=== PATIENT | female | born 1930 | race African-American/Black ===

== ENCOUNTER 2016-06-07 11:09 | Inpatient (IN) | payer MEDICARE, OTHER ==
[~2016-06-07] VITALS: Ht 157.5 cm; Wt 59.9 kg
[~2016-06-07 11:09] MED LIST: ALLO300T PO; CLON0.2T PO; OMEP20TA63 PO; PRAV40TA PO
--- NOTE | 2016-06-07 11:15 | PHYS DOC ---
Adult General Chief Complaint Chief Complaint: SHORTNESS OF BREATH HPI HPI Patient is a 85 year old female who presents with confusion. According to her daughter started about 2 weeks ago and she was taken to drink care department 3 days ago and told she had a UTI and started on Bactrim. She's been having intermittent confusion and weakness. According to daughter she was on the floor this morning and pain denies any nausea vomiting and knows that she is at [facility] currently. The report from urgent care that shows she has 10-50,000 enterococcus species in her urine. She was seen at urgent care and her O2 sats was 85% on room air there. Upon arrival here she is requiring 3 L of oxygen at this time. Review of Systems Review of Systems Constitutional: Denies fever or chills [] Eyes: Denies change in visual acuity, redness, or eye pain [] HENT: Denies nasal congestion or sore throat [] Respiratory: Denies cough or shortness of breath [] Cardiovascular: No additional information not addressed in HPI [] GI: Denies abdominal pain, nausea, vomiting, bloody stools or diarrhea [] : Denies dysuria or hematuria [] Musculoskeletal: Denies back pain, positive for bilateral hip pain [] Integument: Denies rash or skin lesions [] Neurologic: Denies headache, focal weakness or sensory changes [] Endocrine: Denies polyuria or polydipsia [] Current Medications Current Medications Current Medications Medications (Trade) Dose Ordered Sig/Víctor Start Time Stop Time Status Last Admin Dose Admin Azithromycin (Zithromax 500mg Ivpb For Omni) 250 ml @ 250 mls/hr 1X ONCE 06/07/16 15:00 06/07/16 15:59 Ceftriaxone Sodium 1 gm/ Sodium Chloride 50 ml @ 100 mls/hr Q24H 06/08/16 14:00 Ceftriaxone Sodium 50 ml @ 100 mls/hr 1X ONCE 06/07/16 13:45 06/07/16 14:14 DC Allergies Allergies Allergies Coded Allergies Type Severity Reaction Last Updated Verified No Known Drug Allergies 06/15/15 No Physical Exam Physical Exam Constitutional: Well developed, well nourished, no acute distress, non-toxic appearance. [] HENT: Normocephalic, atraumatic, bilateral external ears normal, oropharynx moist, no oral exudates, nose normal. [] Eyes: PERRLA, EOMI, conjunctiva normal, no discharge. [] Neck: Normal range of motion, no tenderness, supple, no stridor. [] Cardiovascular:Heart rate regular rhythm, no murmur [] Lungs & Thorax: Bilateral breath sounds clear to auscultation [] Abdomen: Bowel sounds normal, soft, no tenderness, no masses, no pulsatile masses. [] Skin: Warm, dry, no erythema, no rash. [] Back: No tenderness, no CVA tenderness no step-offs or midline tenderness noted. [] Extremities: Palpation bilateral hips, no cyanosis, no clubbing, ROM intact, no edema. [] Neurologic: Alert and oriented X 3, normal motor function, normal sensory function, no focal deficits noted. [] Psychologic: Affect normal, judgement normal, mood normal. [] Current Patient Data Vital Signs Vital Signs Date Time Temp Pulse Resp B/P Pulse Ox O2 Delivery O2 Flow Rate FiO2 06/07/16 12:09 68 18 190/96 94 Nasal Cannula 2 06/07/16 11:10 98.7 98.7 Lab Values Laboratory Tests Test 06/07/16 11:30 06/07/16 11:55 Urine Color Yellow Urine Clarity Clear Urine pH 6.0 Urine Specific [place] 1.015 Urine Protein Negativemg/dL (NEG-TRACE) Urine Glucose (UA) Negativemg/dL (NEG) Urine Ketones (Stick) Tracemg/dL (NEG) Urine Blood Negative (NEG) Urine Nitrite Negative (NEG) Urine Bilirubin Negative (NEG) Urine Urobilinogen Dipstick 0.2mg/dL (0.2 mg/dL) Urine Leukocyte Esterase Moderate (NEG) Urine RBC 0/HPF (0-2) Urine WBC 5-10/HPF (0-4) Urine Squamous Epithelial Cells Mod/LPF Urine Bacteria Few/HPF (0-FEW) Urine Hyaline Casts Few/HPF Urine Mucus Slight/LPF Urine Opiates Screen Neg (NEG) Urine Methadone Screen Neg (NEG) Urine Barbiturates Neg (NEG) Urine Phencyclidine Screen Neg (NEG) Urine Amphetamine/Methamphetamine Neg (NEG) Urine Benzodiazepines Screen Neg (NEG) Urine Cocaine Screen Neg (NEG) Urine Cannabinoids Screen Neg (NEG) Urine Ethyl Alcohol Neg (NEG) White Blood Count 6.5x10^3/uL (4.0-11.0) Red Blood Count 4.94x10^6/uL (3.50-5.40) Hemoglobin 14.0g/dL (12.0-15.5) Hematocrit 44.3% (36.0-47.0) Mean Corpuscular Volume 90fL (79-100) Mean Corpuscular Hemoglobin 28pg (25-35) Mean Corpuscular Hemoglobin Concent 32g/dL (31-37) Red Cell Distribution Width 14.6% (11.5-14.5) H Platelet Count 307x10^3/uL (140-400) Neutrophils (%) (Auto) 67% (31-73) Lymphocytes (%) (Auto) 21% (24-48) L Monocytes (%) (Auto) 11% (0-9) H Eosinophils (%) (Auto) 1% (0-3) Basophils (%) (Auto) 1% (0-3) Neutrophils # (Auto) 4.4x10^3uL (1.8-7.7) Lymphocytes # (Auto) 1.4x10^3/uL (1.0-4.8) Monocytes # (Auto) 0.7x10^3/uL (0.0-1.1) Eosinophils # (Auto) 0.0x10^3/uL (0.0-0.7) Basophils # (Auto) 0.0x10^3/uL (0.0-0.2) Platelet Estimate Adequate (ADEQUATE) Large Platelets Few Giant Platelets Occ Prothrombin Time 12.9SEC (11.7-14.0) Prothrombin Time INR 1.0 (0.8-1.1) Sodium Level 140mmol/L (136-145) Potassium Level 4.5mmol/L (3.5-5.1) Chloride Level 102mmol/L (98-107) Carbon Dioxide Level 27mmol/L (21-32) Anion Gap 11 (6-14) Blood Urea Nitrogen 13mg/dL (7-20) Creatinine 1.3mg/dL (0.6-1.0) H Estimated GFR (Cockcroft-Gault) 47.0 Glucose Level 94mg/dL (70-99) Calcium Level 10.9mg/dL (8.5-10.1) H Magnesium Level 1.9mg/dL (1.8-2.4) Total Bilirubin 0.5mg/dL (0.2-1.0) Direct Bilirubin 0.2mg/dL (0.0-0.2) Aspartate Amino Transferase (AST) 22U/L (15-37) Alanine Aminotransferase (ALT) 8U/L (14-59) L Alkaline Phosphatase 76U/L (46-116) Creatine Kinase 192U/L (26-192) Creatine Kinase MB (Mass) 1.4ng/mL (0.0-3.6) Creatine Kinase MB Relative Index 0.7% (0-4) Troponin I Quantitative < 0.017ng/mL (0.000-0.055) FO-Lqw-N-Type Natriuretic Peptide 116pg/mL (0-449) Total Protein 8.3g/dL (6.4-8.2) H Albumin 3.8g/dL (3.4-5.0) Thyroid Stimulating Hormone (TSH) 1.361uIU/mL (0.358-3.74) Laboratory Tests 06/07/16 11:55 Laboratory Tests 06/07/16 11:55 EKG EKG EKG is of poor quality shows a regular rhythm with left axis deviation, no ST elevations appreciated. As interpreted by me. Radiology/Procedures Radiology/Procedures [facility] [address] [place] [address] IMAGING REPORT Signed PATIENT: LETICIA LOU ACCOUNT: [id number] : 1930 LOCATION: ER AGE: 85 SEX: F EXAM STATUS: REG ER ORD. PHYSICIAN: RIC QUAN MD REASON: weakness PROCEDURE: PORTABLE CHEST 1V Indication: Weakness. Technique: AP portable chest radiograph was obtained. No comparison is available. Findings: There is partial obscuring of the left hemidiaphragm with minimal left basilar opacity. The heart is not enlarged and there is no heart failure. Minimal biapical opacity, greater on the right, may represent apical scarring. Comparison to any prior exams would be of benefit. Leads overlie the patient. Impression: Minimal left basilar atelectasis and/or infiltrate. Short-term follow-up would be of benefit, ideally would include PA and lateral views. DICTATED and SIGNED BY: LETTY HAMM MD DATE: 06/07/16 1233 CC: RIC QUAN MD; MARCUS ENCINAS Jr, MD ~ [facility] [address] [place] [address] IMAGING REPORT Signed PATIENT: LETICIA LOU ACCOUNT: [id number] : 1930 LOCATION: ER AGE: 85 SEX: F EXAM STATUS: REG ER ORD. PHYSICIAN: RIC QUAN MD REASON: Bi-lateral hip pain PROCEDURE: HIP BILATERAL WITH PELVIS Indication: Bilateral hip pain. Technique: 2 views of each hip and an AP view the pelvis are submitted for review. Comparison is lumbar spine study from November 06, 2007. Findings: Bony pelvis is intact. Calcification centrally within the pelvis are probably calcified fibroids, were present on prior study. Additional calcifications projecting over the left hip on frontal projections probably were present on the margin of the previous film as well and are stable. There are degenerative changes in the spine, increased from prior. 2 views of the left hip demonstrate no fracture or dislocation. There is minimal spurring. 2 views of the right hip demonstrate no fracture or dislocation. There is minimal spurring. Impression: Negative for pelvic or hip fracture. Mild degenerative changes in both hips. DICTATED and SIGNED BY: LETTY HAMM MD DATE: 06/07/16 1311 CC: RIC QUAN MD; MARCUS ENCINAS Jr, MD ~ Impressions: Pneumonia UTI Confusion Course & Med Decision Making Course & Med Decision Making Pertinent Labs and Imaging studies reviewed. (See chart for details) She has a pneumonia on chest x-ray and she was hypoxic and requiring 3 L of oxygen to keep her O2 sats up. She started Rocephin and azithromycin and being admitted to the hospitalist. Patient and family is agreeable to the plan. Dragon Disclaimer Dragon Disclaimer This electronic medical record was generated, in whole or in part, using a voice recognition dictation system. Departure Departure Referrals: MARCUS ENCINAS Jr, MD (PCP) RIC QUAN MD Jun 07, 2016 11:15
[2016-06-07 11:41] LABS: BILIRUBIN,URINE NEGATIVE (NEG); GLUCOSE,URINE NEGATIVE (NEG); NITRITE,URINE NEGATIVE (NEG); PROTEIN,URINE NEGATIVE (NEG-TRACE); UROBILINOGEN,URINE 0.2 mg/dL (0.2 mg/dL)
[2016-06-07 11:46] LABS: BARBITURATES NEG (NEG); BENZODIAZEPINES NEG (NEG); CANNABINOIDS NEG (NEG); COCAINE NEG (NEG); METHADONE NEG (NEG); OPIATES NEG (NEG); PHENCYCLIDINE NEG (NEG)
[2016-06-07 11:47] LABS: ETHANOL, URINE NEG (NEG)
[2016-06-07 11:55] LABS: BACTERIA,URINE FEW /HPF (0-FEW); RBC,URINE 0 /HPF (0-2); SQUAMOUS EPITHELIAL CELL,UR MOD /LPF
[2016-06-07 12:13] LABS: CALCIUM 10.9 mg/dL (8.5-10.1); CREATININE 1.3 mg/dL (0.6-1.0); POTASSIUM 4.5 mmol/L (3.5-5.1)
[2016-06-07 12:19] LABS: ALBUMIN 3.8 g/dL (3.4-5.0); DIRECT BILIRUBIN 0.2 mg/dL (0.0-0.2); MAGNESIUM 1.9 mg/dL (1.8-2.4); TOTAL BILIRUBIN 0.5 mg/dL (0.2-1.0); TOTAL PROTEIN 8.3 g/dL (6.4-8.2)
[2016-06-07 12:24] LABS: PROTHROMBIN TIME PATIENT 12.9 SEC (11.7-14.0)
[2016-06-07 12:30] LABS: BASO % 1 % (0-3); EOS % 1 % (0-3); HEMATOCRIT 44.3 % (36.0-47.0); LYMPH # 1.4 x10^3/uL (1.0-4.8); LYMPH % 21 % (24-48); MEAN CORPUSCULAR HEMOGLOBIN 28 pg (25-35); MEAN CORPUSCULAR HGB CONC 32 g/dL (31-37); MEAN CORPUSCULAR VOLUME 90 fL (79-100); MONO % 11 % (0-9); NEUT % 67 % (31-73); PLATELET COUNT 307 x10^3/uL (140-400); RED BLOOD COUNT 4.94 x10^6/uL (3.50-5.40); RED CELL DISTRIBUTION WIDTH 14.6 % (11.5-14.5); WHITE BLOOD COUNT 6.5 x10^3/uL (4.0-11.0)
[2016-06-07 12:32] LABS: CKMB INDEX 0.7 % (0-4); CKMB MASS 1.4 ng/mL (0.0-3.6)
--- NOTE | 2016-06-07 12:37 | RAD ---
Indication: Weakness. Technique: AP portable chest radiograph was obtained. No comparison is available. Findings: There is partial obscuring of the left hemidiaphragm with minimal left basilar opacity. The heart is not enlarged and there is no heart failure. Minimal biapical opacity, greater on the right, may represent apical scarring. Comparison to any prior exams would be of benefit. Leads overlie the patient. Impression: Minimal left basilar atelectasis and/or infiltrate. Short-term follow-up would be of benefit, ideally would include PA and lateral views.
[2016-06-07 13:17] LABS: PLT ESTIMATE ADEQUATE (ADEQUATE)
--- NOTE | 2016-06-07 13:17 | RAD ---
Indication: Bilateral hip pain. Technique: 2 views of each hip and an AP view the pelvis are submitted for review. Comparison is lumbar spine study from November 06, 2007. Findings: Bony pelvis is intact. Calcification centrally within the pelvis are probably calcified fibroids, were present on prior study. Additional calcifications projecting over the left hip on frontal projections probably were present on the margin of the previous film as well and are stable. There are degenerative changes in the spine, increased from prior. 2 views of the left hip demonstrate no fracture or dislocation. There is minimal spurring. 2 views of the right hip demonstrate no fracture or dislocation. There is minimal spurring. Impression: Negative for pelvic or hip fracture. Mild degenerative changes in both hips.
[2016-06-07] MEDS ORDERED: CEFTRIAXONE 1GM IVPB FOR OMNI 50 ML IV ONE (13:45)
[2016-06-07] MEDS ORDERED: AZITHRMYCN 500MG IVPB FOR OMNI 250 ML IV ONE (15:00)
--- NOTE | 2016-06-07 15:19 | EKG ---
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
[2016-06-07 16:00] VITALS: BP 200/84
[2016-06-07 16:08] VITALS: BP 200/84
--- NOTE | 2016-06-07 16:11 | ACF ---
Admission Forms Criteria PNEUMONIA, COMMUNITY ACQUIRED Clinical Indications for Admission to Inpatient Care ( Place 'X' for any and all applicable criteria): Admission is indicated for ANY ONE of the following (1)(2)(3): [ ]I. Hypoxemia indicated by ANY ONE of the following: [ ]a) Oxygen saturation less than 90% while breathing room air [ ]b) PO2 less than 60 mm Hg (8.0 kPa) while breathing room air [ ]c) Chronic lung disease with significant deterioration from baseline oxygenation [X]II. Appropriate diagnostic testing and treatment unavailable in outpatient or recovery facility (eg,testing or infection control measures unavailable(10) [ ]III. Moderate-risk or high-risk category patients (Pneumonia Severity Index (PSI) class IV or V, or CURB-65 score of 3 or greater). [ ]IV. Outpatient treatment failure as indicated by ANY ONE of the following(9) : [ ]a) Failure to respond to antibiotic (eg, resistant organism) [ ]b) Clinically significant adverse effects from medication (eg, vomiting) [ ]c) Complications of pneumonia (eg, empyema, bacteremia) [ ]d) Significant worsening of comorbid cond necessitating inpatient care (eg, chronic heart failure) [ ]V. Intermediate-risk category patients (eg, PSI class III or CURB-65 score 2) who do not improve with initial therapy and observation. [ ]. Immunocompromised patients (eg, AIDS, chronic steroid use) at moderate or high risk based on clinical evaluation. [ ]VII. Complicated pleural effusions (eg, exudative, loculated) [ ]VIII.Hemodynamic instability [ ] IX. Altered mental status that is severe or persistent. [ ]X. Dehydration that is severe or persistent. [ ]XI. Bacteremia [ ]XII. Respiratory finding (eg. tachypnea) that do not respond to outpatient or observation care treatment Extended stay beyond goal length of stay may be needed for (20) [ ]a) Unclear diagnosis [ ]b) Pleural disease [ ]c) Severe pneumonia or treatment failure (25 [ ]d) Respiratory failure (anticipate invasive or noninvasive ventilatory support) [ ]e) Abnormal serum electrolytes (serum Na concentration less than 135 mEq/L (mmol/L) (32)(33) [ ]f) Clinically significant comorbid illness (eg, heart failure, atrial fibrillation with rapid heart rate, alcohol withdrawal, renal insufficiency)(34)(35) [ ]g) Comorbid acute exacerbation of COPD(36) [ ]h) Concomitant diagnosis of malignancy that may be associated with malnutrition, immunologic impairment, or bronchial obstruction. [ ]i) Concomitant altered mental status [ ]j) Culture-identified Gram-negative or antibiotic-resistant organism (eg, Pseudomonas, methicillin-resistant Staphylococcus aureus)(30) [ ]k) Healthcare-associated pneumonia The original [facility] content created by [employer] has been revised. The portions of the content which have been revised are identified through the use of italic text or in bold, and [facility] has neither reviewed nor approved the modified material. All other unmodified content is copyright [facility]. Please see references footnoted in the original [facility] [employer] edition 2016 Admission Criteria Met?: Yes ALEM WRIGHT Jun 07, 2016 16:11
[2016-06-07] MEDS: CLONIDINE HCL 0.2 MG TABLET PO SCH (17:28)
[2016-06-07 19:00] VITALS: BP 147/78
[2016-06-07] MEDS ORDERED: CLONIDINE HCL 0.2 MG TABLET PO SCH (21:00)
[2016-06-07] MEDS: ATORVASTATIN CALCIUM 20 MG TABLET PO SCH (21:02)
[2016-06-07 23:00] VITALS: BP 136/87
--- NOTE | 2016-06-08 01:49 | HP ---
ADMIT DATE: 06/07/2016 CHIEF COMPLAINT: Status post fall, pneumonia. HISTORY OF PRESENT ILLNESS: The patient is an 85-year-old -[place] woman with past medical history of gout and hypertension who presented to the Emergency Room on the urging of her daughter after she was found down in her home. The patient related that she had fallen and was just unable to get up. She denies any loss of consciousness, but admits to weakness. She had been told that she had a UTI and had been started on Bactrim several days ago. In the Emergency Room, she was found to be hypoxic with a pulse ox of 85 prompting starting of supplemental oxygenation as well and chest x-ray which was positive for minimal left basilar atelectasis and/or infiltrate. A posttraumatic x-ray of both hips did not reveal any fractures. Minimal spurring was noted in both joints. A urinalysis was once again obtained and showed a few bacteria and 5-10 WBC. The patient was therefore admitted with suspicion for pneumonia as well as possibly persistent UTI. PAST MEDICAL HISTORY: Hypertension, gout, history of syncope, but worked up by Cardiology with Holter monitor and negative workup. FAMILY HISTORY: Essentially negative, longevity on both sides of her family. SOCIAL HISTORY: Lives by herself, never smoked. No toxic habits. ALLERGIES: No known drug allergies. MEDICATIONS: MAR reconciled with home medications. REVIEW OF SYSTEMS: The patient denies any shortness of breath, chest pain or other symptoms. Rest of organ system review was completely negative. PHYSICAL EXAMINATION: VITAL SIGNS: Show a blood pressure of 200/84, heart rate of 76, respiratory rate of 16. She is afebrile. GENERAL: This is an 85-year-old frail -[place] woman, alert and oriented, in no acute distress, very pleasant. HEENT: Shows no scleral icterus. NECK: Supple, without any lymphadenopathy. LUNGS: Clear to auscultation bilaterally. HEART: Regular rate and rhythm. ABDOMEN: Has positive bowel sounds, soft, nontender. EXTREMITIES: Show no edema. There is a large bruise over her left upper extremity, apparently where daughter picked her up off the floor. LABORATORY DATA: CBC with a WBC of 6.5, hemoglobin 14.0, platelets of 307. Chemistries with BUN and creatinine of 13 and 1.3, normal electrolytes, normal LFTs. Troponin is negative. Total protein at 8.3 with an albumin of 6.8, TSH 1.3. UA with 5-10 WBCs, few bacteria. PT, PTT is within normal limits. Chest x-ray and hip films as above. ASSESSMENT AND PLAN: The patient is an 85-year-old -[place] woman, status post fall, found with a possible pneumonia. We will obtain noncontrast CT to elucidate. She is asymptomatic with her hypoxia. We will monitor. 1. History of UTI, previously treated with Bactrim. Await urine culture. We will treat empirically with ceftriaxone for both pneumonia and possible UTI. 2. The patient does have a history of gout without any acute exacerbation. We will decrease her home allopurinol to 100 mg given her significant CKD. 3. CKD with a creatinine of 1.3 at her age and low muscle mass is consistent with CKD stage 4. We will monitor closely. 4. Prophylaxis. Will be started with an H2 chidi. Will use SCDs for DVT prophylaxis. SEJAL BOOKER MD DR: UR/nts JOB#: [id number] / [id number] MARCUS Arellano MD [facility]
[2016-06-08 03:00] VITALS: BP 157/74
[2016-06-08 06:05] LABS: BASO # 0.1 x10^3/uL (0.0-0.2); BASO % 1 % (0-3); EOS % 2 % (0-3); HEMATOCRIT 39.1 % (36.0-47.0); HEMOGLOBIN 12.7 g/dL (12.0-15.5); LYMPH # 1.8 x10^3/uL (1.0-4.8); LYMPH % 30 % (24-48); MEAN CORPUSCULAR HEMOGLOBIN 29 pg (25-35); MEAN CORPUSCULAR HGB CONC 33 g/dL (31-37); MEAN CORPUSCULAR VOLUME 88 fL (79-100); MONO % 12 % (0-9); NEUT % 55 % (31-73); PLATELET COUNT 272 x10^3/uL (140-400); RED BLOOD COUNT 4.46 x10^6/uL (3.50-5.40); RED CELL DISTRIBUTION WIDTH 14.7 % (11.5-14.5)
[2016-06-08 06:48] LABS: CREATININE 1.3 mg/dL (0.6-1.0); POTASSIUM 4.9 mmol/L (3.5-5.1)
[2016-06-08] MEDS ORDERED: DEXTROSE 50% 25 GM / 50ML DISP.SYRIN. IV ONE (06:53)
[2016-06-08 07:08] VITALS: BP 147/74
[2016-06-08] MEDS: ALLOPURINOL 100 MG TABLET. PO SCH (09:27)
[2016-06-08] MEDS: CLONIDINE HCL 0.2 MG TABLET PO SCH ×2 (09:27→20:20)
[2016-06-08] MEDS: PANTOPRAZOLE 40 MG TABLET. PO SCH (09:28)
[2016-06-08 10:50] VITALS: BP 102/60
[2016-06-08] MEDS ORDERED: CEFTRIAXONE SODIUM 1 GM in IV NORMAL SALINE 50ML 50 ML IV SCH (14:00)
--- NOTE | 2016-06-08 14:21 | PDOC ---
PROGRESS NOTES Chief Complaint Chief Complaint Hypoxia s/p fall ASSESSMENT AND PLAN: 1. Weakness: s/p fall. prob 2/2 infect. OT PT eval 2. Hypoxia: CT w/o evidence of infiltrate. mild opacities c/w fibrosis 3. recent UTI: finished Abx regimen. UA in ER with bacteria, but cult NGTD. empiric ceftriax. stop in AM if remains asympt 4. gout: on renally dosed allopurinol 5. CKD4: stable 6. Hypoglycemia: noted this AM. responded to OJ/Glu. no hx DM or diabetic meds. monitor. 7. Prophylaxis: H2B. SCDs for DVT Vitals Vitals Vital Signs Date Time Temp Pulse Resp B/P Pulse Ox O2 Delivery O2 Flow Rate FiO2 06/08/16 10:50 96.4 62 20 102/60 97 Nasal Cannula 2.0 96.4 Physical Exam General: Alert, Oriented X3, Cooperative Heart: Regular rate Lungs: Clear Abdomen: Normal bowel sounds, Soft, No tenderness Extremities: No edema Skin: No rashes Labs LABS Laboratory Tests Test 06/07/16 20:45 06/08/16 05:00 06/08/16 07:06 Troponin I Quantitative < 0.017ng/mL (0.000-0.055) < 0.017ng/mL (0.000-0.055) White Blood Count 6.0x10^3/uL (4.0-11.0) Red Blood Count 4.46x10^6/uL (3.50-5.40) Hemoglobin 12.7g/dL (12.0-15.5) Hematocrit 39.1% (36.0-47.0) Mean Corpuscular Volume 88fL (79-100) Mean Corpuscular Hemoglobin 29pg (25-35) Mean Corpuscular Hemoglobin Concent 33g/dL (31-37) Red Cell Distribution Width 14.7% (11.5-14.5) Platelet Count 272x10^3/uL (140-400) Neutrophils (%) (Auto) 55% (31-73) Lymphocytes (%) (Auto) 30% (24-48) Monocytes (%) (Auto) 12% (0-9) Eosinophils (%) (Auto) 2% (0-3) Basophils (%) (Auto) 1% (0-3) Neutrophils # (Auto) 3.3x10^3uL (1.8-7.7) Lymphocytes # (Auto) 1.8x10^3/uL (1.0-4.8) Monocytes # (Auto) 0.7x10^3/uL (0.0-1.1) Eosinophils # (Auto) 0.1x10^3/uL (0.0-0.7) Basophils # (Auto) 0.1x10^3/uL (0.0-0.2) Sodium Level 141mmol/L (136-145) Potassium Level 4.9mmol/L (3.5-5.1) Chloride Level 105mmol/L (98-107) Carbon Dioxide Level 26mmol/L (21-32) Anion Gap 10 (6-14) Blood Urea Nitrogen 15mg/dL (7-20) Creatinine 1.3mg/dL (0.6-1.0) Estimated GFR (Cockcroft-Gault) 47.0 Glucose Level 40mg/dL (70-99) Calcium Level 10.0mg/dL (8.5-10.1) Glucose (Fingerstick) 101mg/dL (70-99) Review of Systems Review of Systems feels great, no c/o Comment Review of Relevant I have reviewed the following items mady (where applicable) has been applied. Labs Laboratory Tests Test 06/07/16 11:30 06/07/16 11:55 06/07/16 20:45 06/08/16 05:00 Urine Color Yellow Urine Clarity Clear Urine pH 6.0 Urine Specific [place] 1.015 Urine Protein Negativemg/dL (NEG-TRACE) Urine Glucose (UA) Negativemg/dL (NEG) Urine Ketones (Stick) Tracemg/dL (NEG) Urine Blood Negative (NEG) Urine Nitrite Negative (NEG) Urine Bilirubin Negative (NEG) Urine Urobilinogen Dipstick 0.2mg/dL (0.2 mg/dL) Urine Leukocyte Esterase Moderate (NEG) Urine RBC 0/HPF (0-2) Urine WBC 5-10/HPF (0-4) Urine Squamous Epithelial Cells Mod/LPF Urine Bacteria Few/HPF (0-FEW) Urine Hyaline Casts Few/HPF Urine Mucus Slight/LPF Urine Opiates Screen Neg (NEG) Urine Methadone Screen Neg (NEG) Urine Barbiturates Neg (NEG) Urine Phencyclidine Screen Neg (NEG) Urine Amphetamine/Methamphetamine Neg (NEG) Urine Benzodiazepines Screen Neg (NEG) Urine Cocaine Screen Neg (NEG) Urine Cannabinoids Screen Neg (NEG) Urine Ethyl Alcohol Neg (NEG) White Blood Count 6.5x10^3/uL (4.0-11.0) 6.0x10^3/uL (4.0-11.0) Red Blood Count 4.94x10^6/uL (3.50-5.40) 4.46x10^6/uL (3.50-5.40) Hemoglobin 14.0g/dL (12.0-15.5) 12.7g/dL (12.0-15.5) Hematocrit 44.3% (36.0-47.0) 39.1% (36.0-47.0) Mean Corpuscular Volume 90fL (79-100) 88fL (79-100) Mean Corpuscular Hemoglobin 28pg (25-35) 29pg (25-35) Mean Corpuscular Hemoglobin Concent 32g/dL (31-37) 33g/dL (31-37) Red Cell Distribution Width 14.6% (11.5-14.5) 14.7% (11.5-14.5) Platelet Count 307x10^3/uL (140-400) 272x10^3/uL (140-400) Neutrophils (%) (Auto) 67% (31-73) 55% (31-73) Lymphocytes (%) (Auto) 21% (24-48) 30% (24-48) Monocytes (%) (Auto) 11% (0-9) 12% (0-9) Eosinophils (%) (Auto) 1% (0-3) 2% (0-3) Basophils (%) (Auto) 1% (0-3) 1% (0-3) Neutrophils # (Auto) 4.4x10^3uL (1.8-7.7) 3.3x10^3uL (1.8-7.7) Lymphocytes # (Auto) 1.4x10^3/uL (1.0-4.8) 1.8x10^3/uL (1.0-4.8) Monocytes # (Auto) 0.7x10^3/uL (0.0-1.1) 0.7x10^3/uL (0.0-1.1) Eosinophils # (Auto) 0.0x10^3/uL (0.0-0.7) 0.1x10^3/uL (0.0-0.7) Basophils # (Auto) 0.0x10^3/uL (0.0-0.2) 0.1x10^3/uL (0.0-0.2) Platelet Estimate Adequate (ADEQUATE) Large Platelets Few Giant Platelets Occ Prothrombin Time 12.9SEC (11.7-14.0) Prothromb Time International Ratio 1.0 (0.8-1.1) Sodium Level 140mmol/L (136-145) 141mmol/L (136-145) Potassium Level 4.5mmol/L (3.5-5.1) 4.9mmol/L (3.5-5.1) Chloride Level 102mmol/L (98-107) 105mmol/L (98-107) Carbon Dioxide Level 27mmol/L (21-32) 26mmol/L (21-32) Anion Gap 11 (6-14) 10 (6-14) Blood Urea Nitrogen 13mg/dL (7-20) 15mg/dL (7-20) Creatinine 1.3mg/dL (0.6-1.0) 1.3mg/dL (0.6-1.0) Estimated GFR (Cockcroft-Gault) 47.0 47.0 Glucose Level 94mg/dL (70-99) 40mg/dL (70-99) Calcium Level 10.9mg/dL (8.5-10.1) 10.0mg/dL (8.5-10.1) Magnesium Level 1.9mg/dL (1.8-2.4) Total Bilirubin 0.5mg/dL (0.2-1.0) Direct Bilirubin 0.2mg/dL (0.0-0.2) Aspartate Amino Transf (AST/SGOT) 22U/L (15-37) Alanine Aminotransferase (ALT/SGPT) 8U/L (14-59) Alkaline Phosphatase 76U/L (46-116) Creatine Kinase 192U/L (26-192) Creatine Kinase MB (Mass) 1.4ng/mL (0.0-3.6) Creatine Kinase MB Relative Index 0.7% (0-4) Troponin I Quantitative < 0.017ng/mL (0.000-0.055) < 0.017ng/mL (0.000-0.055) < 0.017ng/mL (0.000-0.055) RQ-Oix-S-Type Natriuretic Peptide 116pg/mL (0-449) Total Protein 8.3g/dL (6.4-8.2) Albumin 3.8g/dL (3.4-5.0) Thyroid Stimulating Hormone (TSH) 1.361uIU/mL (0.358-3.74) Test 06/08/16 07:06 Glucose (Fingerstick) 101mg/dL (70-99) Laboratory Tests Test 06/07/16 20:45 06/08/16 05:00 06/08/16 07:06 Troponin I Quantitative < 0.017ng/mL (0.000-0.055) < 0.017ng/mL (0.000-0.055) White Blood Count 6.0x10^3/uL (4.0-11.0) Red Blood Count 4.46x10^6/uL (3.50-5.40) Hemoglobin 12.7g/dL (12.0-15.5) Hematocrit 39.1% (36.0-47.0) Mean Corpuscular Volume 88fL (79-100) Mean Corpuscular Hemoglobin 29pg (25-35) Mean Corpuscular Hemoglobin Concent 33g/dL (31-37) Red Cell Distribution Width 14.7% (11.5-14.5) Platelet Count 272x10^3/uL (140-400) Neutrophils (%) (Auto) 55% (31-73) Lymphocytes (%) (Auto) 30% (24-48) Monocytes (%) (Auto) 12% (0-9) Eosinophils (%) (Auto) 2% (0-3) Basophils (%) (Auto) 1% (0-3) Neutrophils # (Auto) 3.3x10^3uL (1.8-7.7) Lymphocytes # (Auto) 1.8x10^3/uL (1.0-4.8) Monocytes # (Auto) 0.7x10^3/uL (0.0-1.1) Eosinophils # (Auto) 0.1x10^3/uL (0.0-0.7) Basophils # (Auto) 0.1x10^3/uL (0.0-0.2) Sodium Level 141mmol/L (136-145) Potassium Level 4.9mmol/L (3.5-5.1) Chloride Level 105mmol/L (98-107) Carbon Dioxide Level 26mmol/L (21-32) Anion Gap 10 (6-14) Blood Urea Nitrogen 15mg/dL (7-20) Creatinine 1.3mg/dL (0.6-1.0) Estimated GFR (Cockcroft-Gault) 47.0 Glucose Level 40mg/dL (70-99) Calcium Level 10.0mg/dL (8.5-10.1) Glucose (Fingerstick) 101mg/dL (70-99) Medications Current Medications Ceftriaxone Sodium 1 gm/ Sodium Chloride 50 ml @ 100 mls/hr Q24H IV ; Start 06/08/16 at 14:00 Ceftriaxone Sodium 50 ml @ 100 mls/hr 1X ONCE IV Last administered on 15:31; Start 06/07/16 at 13:45; Stop 06/07/16 at 14:14; Status DC Azithromycin (Zithromax 500mg Ivpb For Omni) 250 ml @ 250 mls/hr 1X ONCE IV Last administered on 06/07/16 16:59; Start 06/07/16 at 15:00; Stop 06/07/16 at 15: 59; Status DC Clonidine HCl (Catapres) 0.2 mg BID PO ; Start 06/07/16 at 21:00; Stop 06/07/16 at 21:00; Status DC Clonidine HCl (Catapres) 0.2 mg BID PO Last administered on 06/08/16 09:27; Start 06/07/16 at 17:30 Allopurinol (Zyloprim) 100 mg DAILY PO Last administered on 06/08/16 09:27; Start 06/08/16 at 09:00 Pantoprazole Sodium (Protonix) 40 mg DAILYAC PO Last administered on 06/08/16 09:28; Start 06/08/16 at 07:30 Atorvastatin Calcium (Lipitor) 20 mg QHS PO Last administered on 06/07/16 21:02 ; Start 06/07/16 at 21:00 Dextrose 25 gm STK-MED ONCE IV Last administered on 06/08/16 06:53; Start at 06:53; Stop 06/08/16 at 06:54; Status DC Active Scripts Active Reported Prilosec Otc (Omeprazole Magnesium) 20 Mg Tablet.dr 1 Tab PO DAILY Allopurinol 300 Mg Tablet 300 Mg PO DAILY Pravachol (Pravastatin Sodium) 40 Mg Tablet 40 Mg PO DAILY Clonidine Hcl 0.2 Mg Tablet 0.2 Mg PO BID Vitals/I & O Vital Sign - Last 24 Hours 06/07/16 06/07/16 06/07/16 06/07/16 14:30 15:00 16:00 16:08 Temp 98.2 98.2 98.2 98.2 Pulse 80 72 76 76 Resp 20 18 16 16 B/P 182/96 184/92 200/84 200/84 Pulse Ox 94 93 100 100 O2 Delivery Nasal Cannula Nasal Cannula Nasal Cannula Nasal Cannula O2 Flow Rate 2 2 2.0 2.0 06/07/16 06/07/16 06/07/16 06/07/16 17:28 17:37 19:00 20:00 Temp 101.8 101.8 Pulse 76 90 Resp 17 B/P 200/84 147/78 Pulse Ox 99 O2 Delivery Room Air Nasal Cannula Room Air O2 Flow Rate 2.0 06/07/16 06/07/16 06/08/16 06/08/16 21:28 23:00 03:00 07:08 Temp 99.0 97.5 96.4 97.5 99.0 97.5 96.4 97.5 Pulse 68 63 63 Resp 18 18 20 B/P 136/87 157/74 147/74 Pulse Ox 97 98 97 O2 Delivery Nasal Cannula Nasal Cannula Nasal Cannula O2 Flow Rate 2.0 2.0 06/08/16 06/08/16 06/08/16 08:00 09:27 10:50 Temp 96.4 96.4 Pulse 63 62 Resp 20 B/P 147/74 102/60 Pulse Ox 97 O2 Delivery Room Air Nasal Cannula O2 Flow Rate 2.0 Intake and Output 06/07/16 06/07/16 06/08/16 15:00 23:00 07:00 Intake Total 170 ml 260 ml Output Total 250 ml 350 ml Balance -80 ml -90 ml SEJAL BOOKER MD Jun 08, 2016 14:21
[2016-06-08 15:10] VITALS: BP 109/61
--- NOTE | 2016-06-08 15:11 | RAD ---
CT of the chest without contrast, 06/08/2016: History: Hypoxia, infiltrate Noncontrast scans were obtained as requested. There is calcific plaquing of the thoracic aorta. The ascending aorta is at the upper limits of normal in size measuring 4 cm in width. Several coronary artery calcifications are noted. No mediastinal adenopathy is evident. There is minimal apical scarring. There are mild streaky bibasilar pulmonary opacities involving primarily the periphery of the lungs. The appearance suggest mild fibrosis. There is a small focal density in the posterior costophrenic angle on the left compatible with atelectasis. No other dense pulmonary consolidation is seen. There is no evidence of significant pleural fluid. There are mild scattered degenerative changes in the spine. Mild concave superior endplate deformities are present at approximately T11 and L2, probably old. IMPRESSION: 1. Aortic atherosclerosis with borderline dilatation of the ascending aorta. 2. Mild coronary artery calcifications. 3. Mild peripheral basilar parenchymal opacities probably due to fibrosis. 4. Small density in the posterior costophrenic angle left, probably due to atelectasis.
[2016-06-08 19:00] VITALS: BP 125/69
[2016-06-08] MEDS: ATORVASTATIN CALCIUM 20 MG TABLET PO SCH (20:19)
[2016-06-08 22:47] VITALS: BP 132/67
[2016-06-09 03:00] VITALS: BP 139/66
[2016-06-09 07:00] VITALS: BP 139/84
[2016-06-09] MEDS: CLONIDINE HCL 0.2 MG TABLET PO SCH (08:27)
[2016-06-09] MEDS: PANTOPRAZOLE 40 MG TABLET. PO SCH (08:27)
[2016-06-09] MEDS: ALLOPURINOL 100 MG TABLET. PO SCH (08:27)
--- NOTE | 2016-06-09 09:06 | PDOC ---
PROGRESS NOTES Chief Complaint Chief Complaint Hypoxia s/p fall ASSESSMENT AND PLAN: 1. Weakness: s/p fall. prob 2/2 infect. OT PT eval 2. Hypoxia: CT w/o evidence of infiltrate. mild opacities c/w fibrosis. Hypoxia resolved 3. recent UTI: finished Abx regimen. UA in ER with bacteria, but cult NGTD. empiric ceftriax. stop in AM if remains asympt 4. gout: on renally dosed allopurinol 5. CKD4: stable 6. Hypoglycemia: noted this AM. responded to OJ/Glu. no hx DM or diabetic meds. monitor. 7. Prophylaxis: H2B. SCDs for DVT 8. Dispo: home Vitals Vitals Vital Signs Date Time Temp Pulse Resp B/P Pulse Ox O2 Delivery O2 Flow Rate FiO2 06/09/16 08:27 75 139/84 06/09/16 07:00 97.9 18 96 97.9 06/09/16 03:00 Room Air 06/08/16 15:10 2.0 Physical Exam General: Alert, Oriented X3, Cooperative Heart: Regular rate Lungs: Clear Abdomen: Normal bowel sounds, Soft, No tenderness Extremities: No edema Skin: No rashes Review of Systems Review of Systems feels well, no c/o SEJAL BOOKER MD Jun 09, 2016 09:06
[2016-06-09] MEDS ORDERED: ALLO100T PO (09:09)
[2016-06-09 11:00] VITALS: BP 92/56
--- NOTE | 2016-06-10 22:26 | DS ---
DATE OF DISCHARGE: 06/09/2016 CHIEF COMPLAINT: Hypoxia, status post fall. HOSPITAL COURSE: The patient is an 85-year-old woman living by herself, who was found by her daughter on the floor, unable to arise. The patient could not recall how she ended up on the floor, but did not think she had lost any consciousness. In the Emergency Room, she was actually found with a pulse ox of 85% and was therefore admitted for further evaluation and treatment. The patient denied any ongoing symptoms. She states she does have occasional falls and actually had a workup for syncope with Cardiology, which apparently was negative. A chest x-ray in the Emergency Room had shown a questionable infiltrate. A CT of the chest, however, did not confirm this. Hypoxia had resolved spontaneously as well. The patient had a diagnosis of a recent UTI for which she actually had completed her antibiotic course. The urine collection in the Emergency Room showed some bacteria present, but the culture was no growth. Ceftriaxone was therefore stopped and the patient was discharged to home. Her allopurinol for gout prevention was decreased given her renal insufficiency to 100 mg instead of 300 mg. The only unusual finding was a blood sugar of 40, which was symptomatic in the alterations expert hours. This, however, responded easily to OJ and crackers and no further events were noted. PHYSICAL EXAMINATION: Please refer to note from same day, discharge date 06/09/2016. DISCHARGE DISPOSITION: To home. DISCHARGE CONDITION: Improved. DISCHARGE DIAGNOSES: Hypoxia and hypoglycemia. DISCHARGE MEDICATIONS: Please refer to MAR. DISCHARGE INSTRUCTIONS: The patient will follow up with her PCP in 1-2 weeks. SEJAL BOOKER MD DR: UR/nts JOB#: [id number] / [id number] MARCUS Arellano MD
== END 2016-06-09 13:28 | disposition home or self-care (01) | DRG 189 ==
LOC: ER 11:09 → 6 SOUTH 14:00
PROVIDERS: ADMIT Internal Medicine; ATTEND Internal Medicine
DX: J96.01 Acute respiratory failure with hypoxia (principal); N18.4 Chronic kidney disease, stage 4 (severe); E16.2 Hypoglycemia, unspecified; I12.9 Hypertensive chronic kidney disease with stage 1 through stage 4 chronic kidney disease, or unspecified chronic kidney disease; M10.9 Gout, unspecified; Z87.440 Personal history of urinary (tract) infections
CPT/HCPCS: 36415; 71010; 71250; 73521; 80048; 80076; 81001; 82550; 82553; 82947; 83735; 83880; 84443; 84484; 85007; 85027; 85610; 87040; 87086; 93005; 96365; G0379; G0481; J0456; J0690; J0696; J7042; 99285-25